=== PATIENT | male | born 1945 | race Caucasian/White ===

== ENCOUNTER 2024-03-27 08:44 | Emergency (ER) | payer OTHER, SELFPAY ==
[2024-03-27 08:50] VITALS: BP 164/79; PULSE 54; TEMP 36.5; O2SAT 98; BMI 36.5
--- NOTE | 2024-03-27 09:00 | CT_ITS ---
The [address] [address] Patient Name: DEBORA REYNOLDS MRN: [id number] date: 1945 Sex: M Assigned Patient Location: ER Current Patient Location: ER Accession/Order Number: [id number] Exam Date: 03/27/2024 09:26 Report Date: 03/27/2024 09:53 At the request of: ELIZABETH SMITH Procedure: CT head/brain wo con CT cervical spine CLINICAL: Atraumatic pain . Headache for 7 days. TECHNIQUE: Contiguous transaxial images obtained from skullbase through cervical spine without administration of intravenous contrast. Coronal and sagittal reformations were obtained. Dose reduction: mA and/or kV are were adjusted by automated exposure control software based upon patients height and weight. FINDINGS: There is no prevertebral soft tissue swelling or acute cervical spine fracture. There is osteopenia of the cervical spine. There is multilevel degenerative disc disease of the cervical spine that is most pronounced from C4-5 through C6-7. There is minimal retrolisthesis of C4 on C5. There are posterior disc-osteophyte complexes from C3-4 through C6-7 that contribute to central canal stenosis. There is multilevel and bilateral uncovertebral joint osteoarthritis, most pronounced from C3-4 through C5-6. There is also multilevel and bilateral facet joint osteoarthritis with left C3-4 facet ankylosis. Uncovertebral and facet joint osteoarthritis contribute to multilevel and bilateral neural foraminal narrowing. Neural foramina narrowing is most pronounced on the right at C4-5 and C5-6. Neural foramina narrowing is most pronounced on the left at C3-4, C4-5, and C5-6. 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 There is mild carotid artery atherosclerosis. CT/CT head/brain wo con IMPRESSION: 1. No acute osseous cervical spine fracture. 2. Multilevel degenerative disc disease of the cervical spine that is most pronounced from C4-5 through C6-7 with minimal retrolisthesis of C4 on C5. 3. Posterior disc-osteophyte complexes from C3-4 through C6-7 contribute to central canal stenosis. 4. Uncovertebral and facet joint osteoarthritis contribute to neural foraminal narrowing that is most processed on the right at C4-5 and C5-6 and on the left at C3-4, C4-5, and C5-6. 5. Mild carotid artery atherosclerosis. CT head without contrast CLINICAL: Atraumatic pain . Headache for 7 days. Neck pain. TECHNIQUE: Contiguous transaxial images were obtained from skull base to vertex without administration of intravenous contrast. Dose reduction: mA and/or kV are were adjusted by automated exposure control software based upon patients height and weight. FINDINGS: There is no focal scalp soft tissue swelling or acute calvarial fracture. The visualized globes and orbits are grossly normal. Visualized there is minimal ethmoid sinus mucosal thickening. There tiny bilateral maxillary sinus air-fluid levels. Bilateral mastoid air cells are clear. The ventricles and sulci are prominent bilaterally. There is periventricular and deep subcortical white matter low-attenuation consistent with small vessel ischemic disease. 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 There is no intraparenchymal hemorrhage, extraaxial fluid collection, mass lesion, or acute large territory ischemia by noncontrast CT. There is intracranial atherosclerosis. IMPRESSION: 1. No acute intracranial hemorrhage or acute large territory ischemia by noncontrast CT 2. Mild chronic small vessel ischemic disease although left caudate head lacunar infarct. 3. Intracranial atherosclerosis. 4. Mild ethmoid sinus mucosal thickening and tiny bilateral maxillary sinus air-fluid levels. Such findings can be seen in the setting of acute sinusitis. Correlate with clinical presentation and history. If the patient has a focal neurologic deficit or there is clinical suspicion for acute cerebrovascular accident, brain MRI would be recommended for further evaluation. Electronically authenticated by: RIVERA BYDR Date: 03/27/2024 09:53
--- NOTE | 2024-03-27 09:01 | CT_ITS ---
The [address] [address] Patient Name: DEBORA REYNOLDS MRN: [id number] date: 1945 Sex: M Assigned Patient Location: ER Current Patient Location: ER Accession/Order Number: [id number] Exam Date: 03/27/2024 09:26 Report Date: 03/27/2024 09:53 At the request of: ELIZABETH SMITH Procedure: CT cervical spine wo con CT cervical spine CLINICAL: Atraumatic pain . Headache for 7 days. TECHNIQUE: Contiguous transaxial images obtained from skullbase through cervical spine without administration of intravenous contrast. Coronal and sagittal reformations were obtained. Dose reduction: mA and/or kV are were adjusted by automated exposure control software based upon patients height and weight. FINDINGS: There is no prevertebral soft tissue swelling or acute cervical spine fracture. There is osteopenia of the cervical spine. There is multilevel degenerative disc disease of the cervical spine that is most pronounced from C4-5 through C6-7. There is minimal retrolisthesis of C4 on C5. There are posterior disc-osteophyte complexes from C3-4 through C6-7 that contribute to central canal stenosis. There is multilevel and bilateral uncovertebral joint osteoarthritis, most pronounced from C3-4 through C5-6. There is also multilevel and bilateral facet joint osteoarthritis with left C3-4 facet ankylosis. Uncovertebral and facet joint osteoarthritis contribute to multilevel and bilateral neural foraminal narrowing. Neural foramina narrowing is most pronounced on the right at C4-5 and C5-6. Neural foramina narrowing is most pronounced on the left at C3-4, C4-5, and C5-6. 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 There is mild carotid artery atherosclerosis. CT/CT cervical spine wo con IMPRESSION: 1. No acute osseous cervical spine fracture. 2. Multilevel degenerative disc disease of the cervical spine that is most pronounced from C4-5 through C6-7 with minimal retrolisthesis of C4 on C5. 3. Posterior disc-osteophyte complexes from C3-4 through C6-7 contribute to central canal stenosis. 4. Uncovertebral and facet joint osteoarthritis contribute to neural foraminal narrowing that is most processed on the right at C4-5 and C5-6 and on the left at C3-4, C4-5, and C5-6. 5. Mild carotid artery atherosclerosis. CT head without contrast CLINICAL: Atraumatic pain . Headache for 7 days. Neck pain. TECHNIQUE: Contiguous transaxial images were obtained from skull base to vertex without administration of intravenous contrast. Dose reduction: mA and/or kV are were adjusted by automated exposure control software based upon patients height and weight. FINDINGS: There is no focal scalp soft tissue swelling or acute calvarial fracture. The visualized globes and orbits are grossly normal. Visualized there is minimal ethmoid sinus mucosal thickening. There tiny bilateral maxillary sinus air-fluid levels. Bilateral mastoid air cells are clear. The ventricles and sulci are prominent bilaterally. There is periventricular and deep subcortical white matter low-attenuation consistent with small vessel ischemic disease. 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 There is no intraparenchymal hemorrhage, extraaxial fluid collection, mass lesion, or acute large territory ischemia by noncontrast CT. There is intracranial atherosclerosis. IMPRESSION: 1. No acute intracranial hemorrhage or acute large territory ischemia by noncontrast CT 2. Mild chronic small vessel ischemic disease although left caudate head lacunar infarct. 3. Intracranial atherosclerosis. 4. Mild ethmoid sinus mucosal thickening and tiny bilateral maxillary sinus air-fluid levels. Such findings can be seen in the setting of acute sinusitis. Correlate with clinical presentation and history. If the patient has a focal neurologic deficit or there is clinical suspicion for acute cerebrovascular accident, brain MRI would be recommended for further evaluation. Electronically authenticated by: RIVERA BYRD Date: 03/27/2024 09:53
--- NOTE | 2024-03-27 09:01 | ED_ITS ---
HPI HPI - General Adult General Chief complaint: Headache Stated complaint: HEADACHE Time Seen by Provider: 03/27/24 08:56 Source: patient and family Mode of arrival: walk-in Limitations: no limitations History of Present Illness HPI narrative: 78-year-old male presents for headache. He has had it for about 7 days and it starts in the back of his neck and goes up the back of his head. He has had no trauma. No weakness or numbness and he has seen his chiropractor 3 times in the past week but it did not help. No fever. Related Data Home Medications ?Medication ?Instructions ?Recorded ?Confirmed fluoxetine 20 mg capsule 20 mg PO DAILY 03/27/24 03/27/24 Previous Rx's ?Medication ?Instructions ?Recorded amoxicillin 875 mg-potassium 1 tab PO BID #20 tabs 03/27/24 clavulanate 125 mg tablet oxycodone-acetaminophen 5 mg-325 1 tab PO Q6H PRN pain 5 days #20 03/27/24 mg tablet (Percocet) tabs Allergies Allergy/AdvReac Type Severity Reaction Status Date / Time ciprofloxacin [From Cipro] Allergy Intermediate Rash Verified 03/27/24 08:50 Opioid HPI Opioid Management Most Recent Opioid Data: Last Pain Scale 4 03/27/24 09:21 Last MAR Pain Assessment 03/27/24 09:21 Review of Systems ROS Narrative A ten point review of systems is negative except as noted above. Exam Narrative Exam Narrative: Nurses note and vital signs reviewed and patient is not hypoxic. General: The patient appears well and in no apparent distress. Patient is resting comfortably on cart. Skin: Warm, dry, no pallor noted. There is no rash noted. Head: Normocephalic, atraumatic, neck supple, no nuchal rigidity Eye: Normal conjunctiva, no drainage, EOMI. PERRL Ears, Nose, Mouth, and Throat: oral mucosa is moist. Nares patent. Cardiovascular: Regular Rate and Rhythm Respiratory: Patient is in no distress, no accessory muscle use, lungs are clear to auscultation, no wheezing, rales or rhonchi Back: non-tender GI: Soft and nontender Musculoskeletal: The patient has no evidence of calf tenderness, no pitting edema, symmetrical pulses noted bilaterally Neurological: A&O, normal speech, upper and lower extremity strength 5 out of 5 and symmetric Psychiatric: Cooperative Constitutional Vital Signs, click to edit/add: Last Vital Signs Temp 97.7 F 03/27/24 08:50 Pulse 54 L 03/27/24 08:50 Resp 16 03/27/24 08:50 BP 164/79 H 03/27/24 08:50 Pulse Ox 98 03/27/24 08:50 O2 Del Method Room Air 03/27/24 08:50 Course Vital Signs Vital signs: Vital Signs Temperature 97.7 F 03/27/24 08:50 Pulse Rate 54 L 03/27/24 08:50 Respiratory Rate 16 03/27/24 08:50 Blood Pressure 164/79 H 03/27/24 08:50 Pulse Oximetry 98 03/27/24 08:50 Oxygen Delivery Method Room Air 03/27/24 08:50 Temperature 97.7 F 03/27/24 08:50 Pulse Rate 54 L 03/27/24 08:50 Respiratory Rate 16 03/27/24 08:50 Blood Pressure 164/79 H 03/27/24 08:50 Pulse Oximetry 98 03/27/24 08:50 Oxygen Delivery Method Room Air 03/27/24 08:50 Medical Decision Making MDM Narrative Medical decision making narrative: Workup indicates he has ethmoid sinusitis. Blood work is negative. CT C-spine for findings consistent with arthritis were discussed with the patient and his . Treatment diagnosis and follow-up were discussed thoroughly. Differential Diagnosis Differential Diagnosis: Sinusitis, intracranial hemorrhage, muscle strain Lab Data Lab results reviewed: Yes I reviewed the patient's lab results Labs: Lab Results 03/27/24 Range/Units 09:07 WBC 8.9 (4.0-11.0) 10^3/uL RBC 4.82 (4.70-6.10) 10^6/uL Hgb 14.9 (14.0-18.0) g/dL Hct 44.1 (42.0-54.0) % MCV 91.5 (80.0-94.0) fL MCH 30.9 (25.9-34.0) pg MCHC 33.8 (29.9-35.2) g/dL RDW 13.2 (11.0-15.0) % Plt Count 192 (150-450) 10^3/uL MPV 10.8 (9.5-13.5) fL Neut % (Auto) 80.5 H (43.0-75.0) % Lymph % (Auto) 11.0 L (20.5-60.0) % [place] % (Auto) 7.1 (1.7-12.0) % Eos % (Auto) 0.6 L (0.9-7.0) % Baso % (Auto) 0.6 (0.2-2.0) % Neut # (Auto) 7.2 H (1.4-6.5) 10^3/uL Lymph # (Auto) 1.0 L (1.2-3.8) 10^3/uL [place] # (Auto) 0.6 (0.3-0.8) 10^3/uL Eos # (Auto) 0.1 (0.0-0.7) 10^3/uL Baso # (Auto) 0.1 (0.0-0.1) 10^3/uL Abs Immat Gran (auto) 0.02 (0.00-0.03) 10^3/uL Imm/Tot Granulo (auto) 0.2 (0.0-0.5) % Sodium 137 (136-145) mmol/L Potassium 4.4 (3.5-5.1) mmol/L Chloride 102 (98-107) mmol/L Carbon Dioxide 28.1 (21.0-32.0) mmol/L Anion Gap 11.3 BUN 12.0 (7.0-18.0) mg/dL Creatinine 0.85 (0.70-1.30) mg/dL Est GFR ( Amer) >60 (>=60) Est GFR (Non-Af Amer) >60 (>=60) BUN/Creatinine Ratio 14.1 Glucose 144 H (74-106) mg/dL Calcium 9.1 (8.5-10.1) mg/dL Imaging Data CT scan - head: Radiologist's impression: ITS Impressions Head CT 03/27/24 09:00 IMPRESSION: 1. No acute osseous cervical spine fracture. 2. Multilevel degenerative disc disease of the cervical spine that is most pronounced from C4-5 through C6-7 with minimal retrolisthesis of C4 on C5. 3. Posterior disc-osteophyte complexes from C3-4 through C6-7 contribute to central canal stenosis. 4. Uncovertebral and facet joint osteoarthritis contribute to neural foraminal narrowing that is most processed on the right at C4-5 and C5-6 and on the left at C3-4, C4-5, and C5-6. 5. Mild carotid artery atherosclerosis. CT head without contrast CLINICAL: Atraumatic pain . Headache for 7 days. Neck pain. TECHNIQUE: Contiguous transaxial images were obtained from skull base to vertex without administration of intravenous contrast. Dose reduction: mA and/or kV are were adjusted by automated exposure control software based upon patients height and weight. FINDINGS: There is no focal scalp soft tissue swelling or acute calvarial fracture. The visualized globes and orbits are grossly normal. Visualized there is minimal ethmoid sinus mucosal thickening. There tiny bilateral maxillary sinus air-fluid levels. Bilateral mastoid air cells are clear. The ventricles and sulci are prominent bilaterally. There is periventricular and deep subcortical white matter low-attenuation consistent with small vessel ischemic disease. 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 There is no intraparenchymal hemorrhage, extraaxial fluid collection, mass lesion, or acute large territory ischemia by noncontrast CT. There is intracranial atherosclerosis. IMPRESSION: 1. No acute intracranial hemorrhage or acute large territory ischemia by noncontrast CT 2. Mild chronic small vessel ischemic disease although left caudate head lacunar infarct. 3. Intracranial atherosclerosis. 4. Mild ethmoid sinus mucosal thickening and tiny bilateral maxillary sinus air-fluid levels. Such findings can be seen in the setting of acute sinusitis. Correlate with clinical presentation and history. If the patient has a focal neurologic deficit or there is clinical suspicion for acute cerebrovascular accident, brain MRI would be recommended for further evaluation. Electronically authenticated by: RIVERA BYRD Date: 03/27/2024 09:[address] 03/27/24 09:01 IMPRESSION: 1. No acute osseous cervical spine fracture. 2. Multilevel degenerative disc disease of the cervical spine that is most pronounced from C4-5 through C6-7 with minimal retrolisthesis of C4 on C5. 3. Posterior disc-osteophyte complexes from C3-4 through C6-7 contribute to central canal stenosis. 4. Uncovertebral and facet joint osteoarthritis contribute to neural foraminal narrowing that is most processed on the right at C4-5 and C5-6 and on the left at C3-4, C4-5, and C5-6. 5. Mild carotid artery atherosclerosis. CT head without contrast CLINICAL: Atraumatic pain . Headache for 7 days. Neck pain. TECHNIQUE: Contiguous transaxial images were obtained from skull base to vertex without administration of intravenous contrast. Dose reduction: mA and/or kV are were adjusted by automated exposure control software based upon patients height and weight. FINDINGS: There is no focal scalp soft tissue swelling or acute calvarial fracture. The visualized globes and orbits are grossly normal. Visualized there is minimal ethmoid sinus mucosal thickening. There tiny bilateral maxillary sinus air-fluid levels. Bilateral mastoid air cells are clear. The ventricles and sulci are prominent bilaterally. There is periventricular and deep subcortical white matter low-attenuation consistent with small vessel ischemic disease. 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 There is no intraparenchymal hemorrhage, extraaxial fluid collection, mass lesion, or acute large territory ischemia by noncontrast CT. There is intracranial atherosclerosis. IMPRESSION: 1. No acute intracranial hemorrhage or acute large territory ischemia by noncontrast CT 2. Mild chronic small vessel ischemic disease although left caudate head lacunar infarct. 3. Intracranial atherosclerosis. 4. Mild ethmoid sinus mucosal thickening and tiny bilateral maxillary sinus air-fluid levels. Such findings can be seen in the setting of acute sinusitis. Correlate with clinical presentation and history. If the patient has a focal neurologic deficit or there is clinical suspicion for acute cerebrovascular accident, brain MRI would be recommended for further evaluation. Electronically authenticated by: RIVERA BYRD Date: 03/27/2024 09:53 Discharge Plan Discharge Stand Alone Forms: Portal Instructions Chief Complaint: Headache Clinical Impression: Acute ethmoidal sinusitis Patient Disposition: Home, Self-Care Time of Disposition Decision: 10:08 Condition: Good Mode of Transportation: Private Vehicle Prescriptions / Home Meds: New oxycodone-acetaminophen [Percocet] 5-325 mg tablet 1 tab PO Q6H PRN (Reason: pain) 5 Days Qty: 20 0RF amoxicillin-pot clavulanate 875-125 mg tablet 1 tab PO BID Qty: 20 0RF No Action fluoxetine 20 mg capsule 20 mg PO DAILY Print Language: Malay Instructions: Sinusitis (ED) Referrals: FRAN BENJAMIN [Primary Care Provider] - 1 week
[2024-03-27] MEDS: MORPHINE SULFATE 4 MG/ML VIAL IV (09:21)
[2024-03-27 09:32] LABS: Basophils Absolute Auto 0.1 10^3/uL (0.0-0.1); Basophils Percent Auto 0.6 % (0.2-2.0); Eosinophils Absolute Auto 0.1 10^3/uL (0.0-0.7); Eosinophils Percent Auto 0.6 % (0.9-7.0); Hematocrit 44.1 % (42.0-54.0); Hemoglobin 14.9 g/dL (14.0-18.0); Immature Granulocytes Abs Auto 0.02 10^3/uL (0.00-0.03); Immature Granulocytes Pct Auto 0.2 % (0.0-0.5); Mean Corpuscular HGB Conc 33.8 g/dL (29.9-35.2); Mean Corpuscular Hemoglobin 30.9 pg (25.9-34.0); Mean Corpuscular Volume 91.5 fL (80.0-94.0); Mean Platelet Volume 10.8 fL (9.5-13.5); Monocytes Absolute Auto 0.6 10^3/uL (0.3-0.8); Monocytes Percent Auto 7.1 % (1.7-12.0); Neutrophils Absolute Auto 7.2 10^3/uL (1.4-6.5); Neutrophils Percent Auto 80.5 % (43.0-75.0); Platelet Count 192 10^3/uL (150-450); Red Blood Count 4.82 10^6/uL (4.70-6.10); Red Cell Distribution Width 13.2 % (11.0-15.0); White Blood Count 8.9 10^3/uL (4.0-11.0)
[2024-03-27 09:47] LABS: Anion Gap 11.3; BUN Creatinine Ratio 14.1; Calcium 9.1 mg/dL (8.5-10.1); Carbon Dioxide 28.1 mmol/L (21.0-32.0); Chloride 102 mmol/L (98-107); Estimated GFR (African America >60 (>=60); Estimated GFR (Non-African Ame >60 (>=60); Glucose 144 mg/dL (74-106); Potassium 4.4 mmol/L (3.5-5.1); Sodium 137 mmol/L (136-145)
[2024-03-27 10:17] VITALS: BP 169/75; PULSE 48; O2SAT 98
== END 2024-03-27 10:19 | disposition home or self-care (01) ==
PROVIDERS: Emergency Provider Emergency Medicine; PCP Internal Medicine
DX: J01.20 Acute ethmoidal sinusitis, unspecified (principal)
CPT/HCPCS: 36415; 70450; 72125; 80048; 85025; 96374; 99284

== ENCOUNTER 2024-06-23 13:47 | Outpatient (RCR) | payer MEDICARE, SELFPAY | END 2024-07-17 12:09 | disposition home or self-care (01) | LOC: PT 13:47 | PROVIDERS: PCP Internal Medicine; Visit Provider Student in an Organized Health Care Education/Training Program | DX: M47.812 Spondylosis without myelopathy or radiculopathy, cervical region (principal) | CPT/HCPCS: 97012; 97110; 97140; 97162 ==

== ENCOUNTER 2025-05-20 13:45 | Outpatient (RCR) | payer MEDICARE, OTHER, SELFPAY | END 2025-07-08 07:36 | disposition home or self-care (01) | LOC: PT 13:45 | PROVIDERS: PCP Internal Medicine; Visit Provider Internal Medicine | DX: S72.25XD Nondisplaced subtrochanteric fracture of left femur, subsequent encounter for closed fracture with routine healing (principal) | CPT/HCPCS: 97110; 97112; 97113; 97161; 97530 ==

== ENCOUNTER 2025-06-14 08:42 | Outpatient (OUT) | payer OTHER, SELFPAY ==
--- OUTSIDE RECORDS SUMMARY | 2025-06-01 10:30 | XMS_ITS | Encounter Summary ---
Author Organization [facility] Address [address] [place] [address] Care Team Providers Care Clerical Proofreader Name Role Phone Ewa Camarena DO Unavailable [phone] Conrado Lozano MD Unavailable [phone] Ashley Varner MD Unavailable [phone] Conrado Lozano MD Unavailable [phone] Ewa Camarena DO Primary Care Provider Ashley Moran MANAGER GROCERY Unavailable [phone] Reason for Visit * Reason Comments Hospital Follow-up Encounter Details Date Type Department Care Team (Late Contact Info) Description 06/01/2025 10:30 AM EDT [facility] [address] [address] [place] [phone] Ewa Camarena DO [address] [facility] [address] [place] [address] Social History Tobacco Use Types Packs/Day Years Used Date Smoking Tobacco: Former Cigarettes Q uit: 11/04/1993 Smokeless Tobacco: Never Tobacco Cessation:Counseling Given: No Alcohol Use Standard Drinks/Week Comments Not Currently 0 (1 standard drink = 0.6 oz pure alcohol) pt does not drink; caffeine intake: 1 can of pepsi once a week AUDIT-C Answer Date Recorded Frequency of Alcohol Consumption Not on file 08/21/2023 Q2: How many drinks containi ng alcohol do you have on a typical day when you are drinking? Patient does not drink Frequency of Binge Drinking Not on file 08/04 PHQ-2 Answer Date Recorded Patient Health Questionnaire-2 Score 0 08/27/2024 Sex and Gender Information Value Date Recorded Sex Assigned at Male 05/11/2023 5:37 PM EDT Legal Sex Male 7:16 PM EDT Gender Identity Male 05/11/2023 5:37 PM EDT Sexual Orientation Straight 05/11/2023 5: 37 PM EDT documented as of this encounter Last Filed Vital Signs Vital Sign Reading Time Taken Comments Blood Pressure 126/68 06/01/2025 10:45 AM EDT Pulse 89 06/01/2025 10:45 AM EDT Temperature - - Respiratory Rate - - Oxygen Saturation 98% 06/01/2025 10:45 AM EDT Inhaled Oxygen Concentration - - Weight 103 kg (226 lb 12.8 oz) 06/01/2025 10:45 AM EDT Height - - Body Mass Index 33.49 01/02/2023 12:00 PM EST documented in this encounter Plan of Treatment Upcoming Encounters Date Type Department Care Team (Late st Contact Info) Description 11/16/2025 10:00 AM EST Office Visit [facility] [address] [place] [address] Ewa Camarena DO [address] [place] [address] 01/05/2026 9:00 AM EST Office [facility] [address] [place] [phone] Ashley Varner MD [address] [place] [address] documented as of this encounter Visit Diagnoses Not on filedocumented in this encounter Care Teams Clerical Proofreader Relationship Specialty Start Date End Date Ewa Camarena DO [address] [place] [address] PCP - ACO Reach 03/28/23 Ewa Camarena DO [address] [place] [address] PCP - General Internal Medicine 08/22/23 Conrado Lozano MD [address] [place] [address] Referring Physician Ophthalmology 08/21/23 Ashley Varner MD [address] [facility] [address] [place] [address] Consulting Physician Dermatology 08/21/23 Conrado Lozano MD [address] [place] [address] Consulting Physician Ophthalmology 08/21/23 Ashley Moran NP [address] [facility] [address] [place] [address] Nurse Practitioner Family Medicine 08/27/24 Nathaniel Landa Consulting Physician Ophthalmology 08/20/23 Ta [facility] 08/05/23 documented as of this encounter
--- OUTSIDE RECORDS SUMMARY | 2025-06-09 08:13 | XMS_ITS | Encounter Summary ---
Author Organization [facility] Address [address] [place] [address] Care Team Providers Care Tire Cord Weaver Name Role Phone Ewa Camarena MD Primary Care Provider [phone] Encounter Details Date Type Department Care Team (Latest Contact Info) Description 06/09/2025 8:13 AM EDT - 06/09/2025 11:59 PM EDT Hospital Encounter [facility] [address] [place] [address] [place] [address] Closed fracture of femur, intertrochanteric, left, initial encounter ([facility]) Discharge Disposition: Home or Self Care () Social History Tobacco Use Types Packs/Day Years Used Date Smoking Tobacco: Never Smokeless Tobacco: Never Alcohol Use Standard Drinks/Week Comments Not Currently 0 (1 standard drink = 0.6 oz pur e alcohol) [facility] Utilities Answer Date Recorded In the past 12 months has [facility] [employer], gas, oil, or water [employer] threatened to shut off services in your home? No 06/09/2025 Humiliation, Afraid, Rape, and Kick questionnair e Answer Date Recorded Within the last year, have y ou been afraid of your partner or ex-partner? No 04/28/2025 Emotionally Abused Not on file 04/28/2025 Physically Abused Not on file 04/28/2025 Sexually Abused Not on file 04/28/2025 Overall Financial Resource Strain (CARDIA) Answe r Date Recorded How hard is it for you to pa y for the very basics like food, housing, medical care, and heating? Not very hard 04/28/2025 PHQ-2 Answer Date Recorded Patient Health Questionnaire-2 Score 0 06/09/2025 Transportation Answer Date Recorded In the past 12 months, has l ack of transportation kept you from medical appointments or from getting medications? No 04/28/2025 Lack of Transportation (Non-Medical) Not on file 04/28/2025 Housing Stability Vital Sign Answer Man e Recorded In the last 12 months, was t here a time when you were not able to pay the mortgage or rent on time? No 04/28/2025 Number of Times Moved in the Last Year Not on fi le 04/28/2025 At any time in the past 12 m [facility], were you homeless or living in a jail (including now)? No 04/28/2025 Hunger Vital Sign Answer Date Recorded Within the past 12 months, y ou worried that your food would run out before you got the money to buy more. Never true 04/28/20 25 Ran Out of Food in the Last Year Not on file 04/28/2025 Sex and Gender Information Value Date Recorded Sex Assigned at Male 04/28/2025 8:58 AM EDT Legal Sex Male 8:05 PM EDT Gender Identity Male 04/28/2025 8:58 AM EDT Sexual Orientation Heterosexual or Straight 04/05 8:58 AM EDT documented as of this encounter Functional Status documented as of this encounter Medications at Time of Discharge ammonium lactate (Lac-Hydrin) 12 % lotion Apply 1 Application topically if needed for dry skin or irritation (for feet and lower legs as needed). 5 cholecalciferol (Vitamin D-3) 50 MCG (2000 UT) tabletIndications:Clos ed nondisplaced intertrochanteric fracture of left femur, initial encounter ([facility]) Take 1 tablet (50 mcg) by mouth in the morning for 96 doses. 5 07/23/20 25 ergocalciferol (Vitamin D-2) 1.25 MG (00598 Units) capsuleIndications:Janeen sed nondisplaced intertrochanteric fracture of left femur, initial encounter ([facility]) Take 1 capsule (50,000 Units) by mouth 1 (one) time per week for 14 doses. 5 07/24/20 25 FLUoxetine (PROzac) 20 mg capsuleIndications:pos t traumatic stress disorder Take 40 mg by mouth in the morning. documented as of this encounter Plan of Treatment Upcoming Encounters Date Type Department Care Team (Late st Contact Info) Description 08/11/2025 8:15 AM EDT [facility] [address] [place] [address] [place] [phone] Ady Anton MD [address] [facility] [place] [phone] documented as of this encounter Procedures Procedure Name Priority Date/Time Associated Diagnosis Comments XR HIP 2 OR 3 VW LEFT Routine 06/09/2025 8:25 AM EDT Closed fracture of femur, intertrochanteric, left, initial encounter ([facility]) documented in this encounter Results * XR hip left 2 or 3 views (06/09/2025 8:25 AM EDT) Anatomical Region Laterality Modality Lower Extremities, Hip Left Computed Radiography 06/09/2025 11:2 2 AM EDT Impressions 06/09/2025 11:25 AM EDT 1. Stable alignment of intertrochanteric left hip fracture status post ORIF, with interval callus formation at the fracture site. Intact hardware without evidence for loosening. 2. Degenerative changes of the hips, SI joints, lumbar spine. Electronically signed: Chauncey Briones. Narrative 06/09/2025 11:25 AM EDT LEFT HIP 3 VIEWS WITH PELVIS COMPARISON: 04/28/2025 HISTORY: Closed intertrochanteric fracture of left hip, follow-up. Left hip pain. AP view the pelvis and hips, AP view of the left hip, and frog lateral radiograph of the left hip obtained. Procedure Note Chauncey Briones MD - 06/09/2025 LEFT HIP 3 VIEWS WITH PELVIS COMPARISON: 04/28/2025 HISTORY: Closed intertrochanteric fracture of left hip, follow-up. Lefthip pain. AP view the pelvis and hips, AP view of the left hip, and frog lateral radiograph of the left hip obtained. IMPRESSION: 1. Stable alignment of intertrochanteric left hip fracture status postORIF, with interval callus formation at the fracture site. Intact hardwarewithout evidence for loosening. 2. Degenerative changes of the hips, SI joints, lumbar spine. Electronically signed: Chauncey Briones. Ady Anton MD IMG XR PROCEDURES Final R esult documented in this encounter Visit Diagnoses Diagnosis Closed fracture of femur, intertrochanteric, left, initial encounter ([facility]) documented in this encounter Care Teams Tire Cord Weaver Relationship Specialty Start Date End Date Ewa Camarena MD [address] [place] [phone] PCP - General Internal Medicine 04/14/25 documented as of this encounter
--- OUTSIDE RECORDS SUMMARY | 2025-06-09 09:15 | XMS_ITS | Encounter Summary ---
Author Organization [facility] Address [address] [place] [address] Care Team Providers Care Auto Body Service Mechanic Name Role Phone Ewa Camarena MD Primary Care Provider [phone] Reason for Visit * Reason Comments Pain Pt. States he starte d having a little pain this morning in the thigh area, states it feels like the pain is in the muscle. Over all doing well. Follow-up Pt. States he starte d having a little pain this morning in the thigh area, states it feels like the pain is in the muscle. Over all doing well. Encounter Details Date Type Department Care Team (Late st Contact Info) Description 06/09/2025 9:15 AM EDT Follow-Up [facility] [address] [place] [address] [place] [phone] Ady Anton MD [address] [place] [address] Closed fracture of femur, intertrochanteric, left, initial encounter ([facility]) (Primary Dx) Social History Tobacco Use Types Packs/Day Years Used Date Smoking Tobacco: Never Smokeless Tobacco: Never Alcohol Use Standard Drinks/Week Comments Not Currently 0 (1 standard drink = 0.6 oz pur e alcohol) [facility] Utilities Answer Date Recorded In the past 12 months has e electric, gas, oil, or water company threatened to shut off services in your [...] any time in the past 12 m [facility], were you homeless or living in a longterm (including now)? No 04/28/2025 Hunger Vital Sign Answer Date Recorded Within the past 12 months, y ou worried that your food would run out before you got the money to buy more. Never true 04/28/20 Ran Out of Food in the Last Year Not on file 04/28/2025 Sex and Gender Information Value Date Recorded Sex Assigned at Male 04/28/2025 8:58 AM EDT Legal Sex Male 8:05 PM EDT Gender Identity Male 04/28/2025 8:58 AM EDT Sexual Orientation Heterosexual or Straight 04/05 8:58 AM EDT documented as of this encounter Last Filed Vital Signs Vital Sign Reading Time Taken Comments Blood Pressure - - Pulse - - Temperature - - Respiratory Rate - - Oxygen Saturation - - Inhaled Oxygen Concentration - - Weight 112 kg (248 lb) 06/09/2025 8:00 AM EDT Height 175.3 cm (5' 9 ) 06/09/2025 8:00 AM EDT Body Mass Index 36.62 06/09/2025 8:00 AM EDT documented in this encounter Functional Status documented as of this encounter Progress Notes * Ady Anton MD - 06/09/2025 9:15 AM EDT Images from the original note were not included. Orthopedic Surgery 04/15/2025 Insertion, Intramedullary Torres, Femur - Left Gen Rees comes in for a post-operative visit after having a left intertrochanteric femurfractured s/p closed reduction and cephalomedullary nailing done on 04/15/2025. Today he is doing well and has no unexpected complaints. He is currently at a [facility] facility ([facility] [place]) which provides physical therapy twice daily for him. He is still using a walker which he was not using prior to the injury. Physical Exam: The incision site is healing well. There is no erythema, drainage or signs of infection. Tenderness is mild and localized to the surgical site. Sensation is present to light touch. Range of motion is appropriate for this time. Leg lengths are equal. Internal and external rotationof the legs bilaterally are equal. Left knee active extension is full and hip active flexion is 80 degrees. Imaging: X-rays of left femur today (06/09/25) show short intramedullary torres and helical hip blade intact. No loosening of hardware or new fracture is visible. Anatomic alignment of proximal femur fracture. Prior medial compartment knee arthroplasty is visible. Assessment: Gen Rees is a 80 y.o. year old male with Closed fracture of femur, intertrochanteric, left, initial encounter ([facility]) 8 weeks s/p closed reduction and cephalomedullary nailing. Plan: Patient is doing well post-operatively. Continue outpatient physical therapy. Follow-up in 2 months with new x-rays of left hip. Follow up in 2 months with repeat left hip xrays. Coco Arias, MS4 Orthopedic Surgery 06/09/25 8:40 AM By using the attestations below, the signing clinician agrees that I have read and verify that thedocumentation has been personally reviewed by me and ensure that the documentation accurately reflects the encounter. GC: I personally saw this patient on the day of the encounter, performed the gordon portion(s) of the service and participated in the management and confirm the resident's documentation. Please note there may be an additional personal documentation from me. documented in this encounter Plan of Treatment Upcoming Encounters Date Type Department Care Team (Late st Contact Info) Description 08/11/2025 8:15 AM EDT Follow-Up [facility] [address] [place] [address] [place] [address] Ady Anton MD [address] [place] [address] documented as of this encounter Results * XR hip left [...] of femur, intertrochanteric, left, initial encounter ([facility])- Primary Closed fracture of femur, intertrochanteric, left, initial encounter ([facility]) documented in this encounter Care Teams Auto Body Service Mechanic Relationship Specialty Start Date End Date Ifrah-Ewa Shah MD [address] [place] [address] PCP - General Internal Medicine 04/14/25 documented as of this encounter
--- OUTSIDE RECORDS SUMMARY | 2025-06-14 08:44 | XMS_ITS | Encounter Summary ---
Author Organization [facility] Address [address] [facility] [place] [address] Care Team Providers Care Bookmobile Librarian Name Role Phone Ewa Camarena DO Unavailable [phone] Conrado Lozano MD Unavailable Ashley Varner MD Unavailable [phone] Conrado Lozano MD Unavailable [phone] Ewa Camarena DO Primary Care Provider Latosha Kennedy EXTRACTOR LOADER AND UNLOADER Unavailable [phone] Ashley Moran BUILDING DRAFTING OFFICER Unavailable [phone] Encounter Details Date Type Department Care Team (Late st Contact Info) Description 11/12/2023 [facility] [address] [facility] [address] [place] [phone] A, Unknown Practice [address] [place] [id number] Social History Tobacco Use Types Packs/Day Years Used Date Smoking Tobacco: Former Cigarettes Q uit: 11/04/1993 Smokeless Tobacco: Never Alcohol Use Standard Drinks/Week [...] Date Recorded Patient Health Questionnaire-2 Score 0 08/22/2023 Sex and Gender Information Value Date Recorded Sex Assigned at Male 05/11/2023 5:37 PM EDT Legal Sex Male 7:16 PM EDT Gender Identity Male 05/11/2023 5:37 PM EDT Sexual Orientation Straight 05/11/2023 5: 37 PM EDT documented as of this encounter Plan of Treatment Upcoming Encounters Date Type Department Care Team (Late st Contact Info) Description 11/16/2025 10:00 AM EST Office Visit [facility] [address] [place] [phone] Ewa Camarena DO [address] [place] [address] 01/05/2026 9:00 AM EST Office Visit [facility] [address] [place] [phone] Ashley Varner MD [address] [place] [address] documented as of this encounter Procedures Procedure Name Priority Date/Time Associated Diagnosis Comments HOME SLEEP TEST Routine 07/05/2023 3:24 PM EDT documented in this encounter Results * Home sleep test (07/05/2023 3:24 PM EDT) us Unknown Practice [facility] ORDERABLES Final Result documented in this encounter Visit Diagnoses Not on filedocumented in this encounter Care Teams Bookmobile Librarian Relationship Specialty Start Date End Date Ewa Camarena DO [address] [place] [address] PCP - ACO Reach 03/28/23 Ewa Camarena DO [address] [place] [address] PCP - General Internal Medicine 08/22/23 Conrado Lozano MD [address] [place] [address] Referring Physician Ophthalmology 08/21/23 Ashley Varner MD [address] [place] [address] Consulting Physician Dermatology 08/21/23 Conrado Lozano MD [address] [place] [address] Consulting Physician Ophthalmology 08/21/23 Latosha Kennedy, EXTRACTOR LOADER AND UNLOADER [address] [facility] [address] [place] [address] Newspaper Distributor Supervisor Family Medicine 06/01/24 06/03/24 Ashley Moran NP [address] [facility] [address] [place] [address] Nurse Practitioner Family Medicine 08/27/24 Nathaniel Landa Consulting Physician Ophthalmology 08/20/23 Ta Kennedy Chiropractic Medicine 08/05/23 documented as of this encounter
--- OUTSIDE RECORDS SUMMARY | 2025-06-14 08:44 | XMS_ITS | Encounter Summary ---
Author Organization [facility] Address [address] [facility] [place] [address] Care Team Providers Care Certified Massage Therapist Name Role Phone Ewa Camarena DO Unavailable [phone] Conrado Lozano MD Unavailable [phone] Ashley Varner MD Unavailable [phone] Conrado Lozano MD Unavailable [phone] Ewa Camarena DO Primary Care Provider Ashley Moran ORNAMENTAL IRON ERECTOR Unavailable [phone] Encounter Details Date Type Department Care Team (Late st Contact Info) Description 04/15/2025 Orders Only [facility] [address] [facility] [address] [place] [phone] Unallocated, Noms Provider, [address] [place], [place] [phone] Social History Tobacco Use Types Packs/Day Years [...] Description 11/16/2025 10:00 AM EST Office Visit [facility] [place] [facility] [address] [place] [address] Ewa Camarena DO [address] [place] [address] 01/05/2026 9:00 AM EST Office Visit [facility] [place] [facility] [address] [place] [address] Ashley Varner MD [address] [place] [address] documented as of this encounter Procedures Procedure Name Priority Date/Time Associated Diagnosis Comments ECG 12-LEAD Routine 04/14/2025 2:05 PM EDT XR CHEST 1 VIEW FRONTAL Routine 04/14/2025 8:41 AM EDT documented in this encounter Results * ECG 12 lead (04/14/2025 2:05 PM EDT) us N[facility] Provider Unallocated ECG ORDERABLES Fin al Result * XR CHEST 1 VIEW FRONTAL (04/14/2025 8:41 AM EDT) Anatomical Region Laterality Modality Radiographic Sue ging us Noms Provider Unallocated IMG XR PROCEDURES F inal Result documented in this encounter Visit Diagnoses Not on filedocumented in this encounter Care Teams Certified Massage Therapist Relationship Specialty Start Date End Date Ewa Camarena DO [address] [place] [address] PCP - ACO Reach 03/28/23 Ewa Camarena DO [address] [facility] [address] [place] [address] PCP - General Internal Medicine 08/22/23 Conrado Lozano MD [address] [place] [address] Referring Physician Ophthalmology 08/21/23 Ashley Varner MD [address] [facility] [address] [place] [address] Consulting Physician Dermatology 08/21/23 [place] [address] [place] [address] Consulting Physician Ophthalmology 08/21/23 Ashley Moran NP [address] [facility] [address] [place] [address] Nurse Practitioner Family Medicine 08/27/24 Nathaniel Landa Consulting Physician Ophthalmology 08/20/23 Ta Kennedy Chiropractic Medicine 08/05/23 documented as of this encounter
--- OUTSIDE RECORDS SUMMARY | 2025-06-14 08:44 | XMS_ITS | Clinical Summary ---
Author Organization [facility] Address [address] [place] [address] Care Team Providers Care Electric Organ Assembler Name Role Phone Ewa Camarena DO Unavailable [phone] Conrado Lozano MD Unavailable [phone] Ashley Varner MD Unavailable [phone] Conrado Lozano MD Unavailable [phone] Ewa Camarena DO Primary Care Provider Ashley Moran MARKETING PROFESSIONAL Unavailable [phone] Allergies Active Allergy Reactions Criticality Noted Date Comments Ciprofloxacin Rash Low 05/13/2023 Lactose 05/13/2023 Other Reaction(s): intolerant Medications FLUoxetine (PROzac) 20 MG capsuleIndicatio ns:Posttraumatic Stress Disorder Take 40 mg by mouth Daily Active ammonium lactate (Lac-Hydrin) 12 % lotionIndication s:Venous stasis dermatitis of right lower extremity Apply topically if needed for dry skin 140 g 3 5 02/04/20 26 Active acetaminophen (Tylenol) 500 MG tablet Take 1,000 mg by mouth in the morning and 1,000 mg before bedtime. Active aspirin 325 MG tablet Take 325 mg by mouth Daily Active Cholecalciferol 50 MCG (1999) tablet dispersible Take 50 mcg by mouth Daily Active Active Problems Problem Noted Date Diagnosed Date Arthritis of neck 04/01/2024 Overview (08/27/2024): CT done 03/2024 for BLANCO. Noted to have degenerative changes at the spine with disc space narrowing, endplate spurring and facet disease. There is mild thecal sac effacement at C3-4 and C6-7 and moderate at C4-5 and C5-6. There is also prominent multilevel foraminal encroachment from C3-4 through C5-6 bilaterally -- 08/2024: He has had 2 injections with Pain Management/Dr Sesay and reports significant improvement CPAP (continuous positive airway pressure) preethi ramsay 10/04/2023 Overview (11/12/2023): Pt set up on CPAP of [id number] post WatchPAT device PTSD (post-traumatic stress disorder) 08/22/2023 Overview (08/27/2024): dx 2022- seeing a counselor and participating in a support group through the [facility] 08/2024: He reports he feels like his dose of fluoxetine needs increase from 20 mg to 40 mg ([facility]) EPIFANIO (obstructive sleep apnea) 08/22/2023 Overview (11/12/2023): 08/22/2023: He had a sleep study done ~07/2023 ([facility] the [facility]) and findings c/w moderate EPIFANIO> will likely be getting a CPAP. He reports that he has appt an 09/05/2023 to discuss recommendations 11/2023 Pt prescribed CPAP of 8-12 cmH2O post WatchPAT device and Dr. Marrero ([facility]). He reports he is tolerating this well and is wearing nightly and during the day if he naps. He reports he is getting up less frequently at night and much more rested during the day Bilateral tinnitus 08/21/2023 Sensorineural hearing loss (SNHL), bilateral Assessment & Plan (08/22/2023 9:41 AM EDT): He can get his hearing aids through the [place] clinic Venous stasis dermatitis of right lower extremit y 08/21/2023 IFG (impaired fasting glucose) 11/04/2018 Overview (08/27/2024): Dx 11/2018. He made diet changes and lost ~35# and glucose control improved 08/2023 NHF=776 and A1c-5.5% 08/2024 IVZ=344 and A1c=6.0% Assessment & Plan (08/27/2024 9:41 AM EDT): I have reinforced the importance of dietary modification, routine exercise and weight control for fpc glucose management and reduction in risk for development of DM or DM-related complications (like vision loss, kidney failure, neuropathy, and increased risk of heart attack and stroke). Assessment & Plan (08/22/2023 9:41 AM EDT): His glucose control remains good overall. Hx of deep venous thrombosis 06/04/2006 Overview (08/21/2023): 06/2006: Occurred in post-op setting. 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 and then treated with Xarelto x 3 months (initially was on coumadin, but he was sensitive to this and had supratherapeutic INR even on low dose) Michael filter in place 11/04/2005 Overview (08/21/2023): placed 06/2006: right leg Encounters Date Type Department Care Team Description 06/01/2025 10:30 AM EDT Office Visit [facility] [address] [place] [phone] Ewa Camarena DO 06/01/2025 Travel 05/28/2025 Patient Outreach [facility] [address] [address] Otilia Rg LPN 05/21/2025 Patient Outreach [facility] [address] [place] [address] Otilia Rg, REGULATORY AFFAIRS INTERN 05/10/2025 Patient Outreach [facility] [address] [place] [address] Otilia Rg, REGULATORY AFFAIRS INTERN 05/06/2025 Patient Outreach [facility] [address] [place] [place] [address] Otilia Rg, REGULATORY AFFAIRS INTERN 04/29/2025 Patient Outreach [facility] [address] [place] [address] Otilia Rg, REGULATORY AFFAIRS INTERN 04/20/2025 Patient Outreach [facility] [address] [place] [address] Norma Kang MA 04/15/2025 Orders Only [facility] [address] [place] [address] Unallocated, [facility] ProviderMD from Last 3 Months Immunizations Immunization Administration Dates Next Due Influenza, seasonal, injectable 07/15/2023 Pneumococcal Conjugate PCV 13 05/03/2016 Pneumococcal Polysaccharide PPSV23 06/11/2013, RSV, recombinant, protein morton bunit RSVpreF, adjuvant reconstitu, 120mcg/0.5mL, PF (Arexvy) 07/15/2023 SARS-COV-2 (COVID-19) vaccin e, mRNA, spike protein, LNP, PF, karen-sucrose, 30 mcg/0.3 mL 07/26/2023 Tdap 04/26/2023 Zoster, Recombinant 08/18/2019,08/04/2019,2018 Family History Medical History Relation Name Comments Appendicitis Brother 1 CAD with 4VCABG Brother 1 Colon cancer Brother 1 Kidney cancer Brother 1 Alcohol abuse Brother 2 Drug abuse Brother 2 smoking related health issues Brother 2 CAD with [place] Father Stroke Father Chronic kidney disease Mother Diabetes Mother Cancer Sibling Heart disease Sibling Osteoporosis Sister 1 Osteoporosis Sister 2 Melanoma Neg Hx Relation Name Status Comments Brother 1 Brother 2 Alive Father (Age 71) Mother (Age 91) Sibling Sister 1 Sister 2 Alive Social History Tobacco Use Types Packs/Day Years [...] Orientation Straight 05/11/2023 5: 37 PM EDT Last Filed Vital Signs Vital Sign Reading Time Taken Comments Blood Pressure 126/68 06/01/2025 10:45 AM EDT Pulse 89 06/01/2025 10:45 AM EDT Temperature 36.1 C (97 F) 02/09/2025 9:58 AM EDT Respiratory Rate - - Oxygen Saturation 98% 06/01/2025 10:45 AM EDT Inhaled Oxygen Concentration - - Weight 103 kg (226 lb 12.8 oz) 06/01/2025 10:45 AM EDT Height 175.3 cm (5' 9 ) 01/02/2023 12:00 PM EST Body Mass Index 33.49 01/02/2023 12:00 PM EST Plan of Treatment Upcoming Encounters Date Type Department Care Team (Late st Contact Info) Description 11/16/2025 10:00 AM EST Office Visit [facility] [address] [place] [address] Ewa Camarena, DO [address] [place] [address] 01/05/2026 9:00 AM EST Office Visit [facility] [place] [facility] [address] [place] [address] Ashley Varner MD [address] [place] [address] Health Maintenance Due Date Last Done Comments Influenza Vaccine (#1) 2025 , 07/15/2023, 08/31/2022, Additional history exists Medicare Annual Wellness (AWV) 08/27/2025 08/27/2024 , 08/17/2022 Pneumococcal Vaccine: 65+ Years Completed 05/03/2016, 06/11/2013, 02/16/2006 Procedures Procedure Name Priority Date/Time Associated Diagnosis Comments ECG 12-LEAD Routine 04/14/2025 2:05 PM EDT XR CHEST 1 VIEW FRONTAL Routine 04/14/2025 8:41 AM EDT from Last 3 Months Results * ECG 12 lead (04/14/2025 2:05 PM EDT) us [facility] Provider Unallocated MD ECG ORDERABLES Fin al Result * XR CHEST 1 VIEW FRONTAL (04/14/2025 8:41 AM EDT) Anatomical Region Laterality Modality Radiographic Sue ging us [facility] Provider Unallocated MD IMG XR PROCEDURES F inal Result from Last 3 Months Insurance MEDICARE LEEANN Advance Directives Documents on File Type Date Recorded Patient Delinquent Account Clerk Expl anation Advance Directives and Livin g Will 09/15/2019 [email or web address] * Full Code (Latest Code Status on File) Date Activated Date Inactivated Comments 08/27/2024 9:14 AM * Full Code Date Activated Date Inactivated Comments 08/21/2023 11:18 PM 08/27/2024 9:14 AM Care Teams Electric Organ Assembler Relationship Specialty Start Date End Date Ewa Camarena DO [address] [place] [address] PCP - ACO Reach 03/28/23 Ewa Camarena DO [address] [place] [address] PCP - General Internal Medicine 08/22/23 [place] [address] [place] [address] Referring Physician Ophthalmology 08/21/23 Ashley Varner MD [address] [place] [address] Consulting Physician Dermatology 08/21/23 [place] [address] [place] [address] Consulting Physician Ophthalmology 08/21/23 Ashley Moran NP [address] [id number] Nurse Practitioner Family Medicine 08/27/24 Nathaniel Landa Consulting Physician Ophthalmology 08/20/23 Ta Kennedy Chiropractic Medicine 08/05/23
--- OUTSIDE RECORDS SUMMARY | 2025-06-14 08:44 | XMS_ITS | Encounter Summary ---
Author Organization [facility] Address [address] [place] [address] Care Team Providers Care Conference Center Coordinator Name Role Phone Ewa Camarena DO Unavailable [phone] Conrado Lozano MD Unavailable [phone] Ashley Varner MD Unavailable [phone] Conrado Lozano MD Unavailable [phone] Ewa Camarena DO Primary Care Provider Latosha Kennedy CAN LINE OPERATOR Unavailable [phone] Ashley Moran CLOTH TEARER Unavailable [phone] Encounter Details Date Type Department Care Team (Late st Contact Info) Description 08/22/2023 Abstract [facility] [address] [facility] [address] [place] [address] Ewa Camarena, DO [address] [facility] [address] [place] [address] Social History Tobacco Use Types Packs/Day Years [...] Orientation Straight 05/11/2023 5: 37 PM EDT COVID-19 Exposure Response Date Recorded In the last 10 days, have yo u been in contact with someone who was confirmed or suspected to have Coronavirus/COVID-19? No / Unsure 08/18/2023 6:37 PM EDT documented as of this encounter Functional Status * Over the past 2 weeks, how often have you been bothered by any of the following problems? Question Answer Date of Assessment Author Little interest or pleasure in doing things Not at all 08/22/2023 9:00 AM EDT Liz Briscoe LP N Feeling down, depressed, or hopeless Not at all 08/22/2023 9:00 AM EDT Liz Briscoe LP N Patient Health Questionnaire -2 Score 0 08/22/2023 9:00 AM EDT Liz Briscoe LP N documented as of this encounter Plan of Treatment Upcoming Encounters Date Type Department Care Team (Late st Contact Info) Description 11/16/2025 10:00 AM EST Office Visit [facility] [address] [place] [address] Ewa Camarena DO [address] [place] [address] 01/05/2026 9:00 AM EST Office Visit [facility] [address] [place] [address] Ashley Varner MD [address] [place] [address] documented as of this encounter Visit Diagnoses Not on filedocumented in this encounter Care Teams Conference Center Coordinator Relationship Specialty Start Date End Date Ewa Camarena DO [address] [place] [address] PCP - ACO Reach 03/28/23 Ewa Camarena DO [address] [place] [address] PCP - General Internal Medicine 08/22/23 Conrado Lozano MD [address] [place] [address] Referring Physician Ophthalmology 08/21/23 Ashley Varner MD [address] [place] [address] Consulting Physician Dermatology 08/21/23 [place] [address] [place] [address] Consulting Physician Ophthalmology 08/21/23 Latosha Kennedy, CHELLY [address] [place] [address] Information Architect Family Medicine 06/01/24 06/03/24 Ashley Moran NP [address] [place] [address] Nurse Practitioner Family Medicine 08/27/24 Nathaniel Landa Consulting Physician Ophthalmology 08/20/23 [facility] 08/05/23 documented as of this encounter
--- OUTSIDE RECORDS SUMMARY | 2025-06-14 08:44 | XMS_ITS | Encounter Summary ---
Author Organization [facility] Address [address] [place] [address] Care Team Providers Care Strategic Account Director Name Role Phone Ewa Camarena DO Unavailable [phone] Conrado Lozano MD Unavailable [phone] Ashley Varner MD Unavailable [phone] Conrado Lozano MD Unavailable [phone] Ewa Camarena DO Primary Care Provider Ashley Moran HEALTH/SAFETY JOB TITLES Unavailable [phone] Encounter Details Date Type Department Care Team (Latest Contact Info) Description 06/01/2025 Travel Social History Tobacco Use Types Packs/Day Years [...] [address] [place] [address] Ewa Camarena DO [address] [place] [address] 01/05/2026 9:00 AM EST Office Visit [facility] [address] [place] [address] Ashley aVrner MD [address] [place] [address] documented as of this encounter Visit Diagnoses Not on filedocumented in this encounter Care Teams Strategic Account Director Relationship Specialty Start Date End Date Ewa Camarena DO [address] [place] [address] PCP - ACO Reach 03/28/23 Ewa Camarena DO [address] [place] [address] PCP - General Internal Medicine 08/22/23 [place] [address] [place] [address] Referring Physician Ophthalmology 08/21/23 Ashley Varner MD [address] [place] [address] Consulting Physician Dermatology 08/21/23 Conrado Lozano MD [address] [place] [address] Consulting Physician Ophthalmology 08/21/23 Ashley Moran NP [address] [facility] [address] [place] [address] Nurse Practitioner Family Medicine 08/27/24 Nathaniel Landa Consulting Physician Ophthalmology 08/20/23 Ta [facility] 08/05/23 documented as of this encounter
--- OUTSIDE RECORDS SUMMARY | 2025-06-14 08:44 | XMS_ITS | Encounter Summary ---
Author Organization [facility] Address [address] [facility] [place] [address] Care Team Providers Care Sheet Metal Duct Installer Helper Name Role Phone Ewa Camarena DO Unavailable [phone] Conrado Lozano MD Unavailable [phone] Ashley Varner MD Unavailable [phone] Conrado Lozano MD Unavailable [phone] Ewa Camarena DO Primary Care Provider Latosha Kennedy ARMORED CAR GUARD Unavailable [phone] Ashley Moran NEWSPAPER VENDOR Unavailable [phone] Encounter Details Date Type Department Care Team (Late st Contact Info) Description 03/27/2024 Orders Only [facility] [address] [facility] [address] [place] [address] A, Unknown Practice [address] [place] [address] Social History Tobacco Use Types Packs/Day [...] Medicine [address] [place] [address] Ewa Camarena DO [address] [place] [address] 01/05/2026 9:00 AM EST Office Visit [facility] [address] [place] [address] Ashley Varner MD [address] [place] [address] documented as of this encounter Procedures Procedure Name Priority Date/Time Associated Diagnosis Comments CT CERVICAL SPINE W IV CONTRAST Routine 03/27/2024 11:16 AM EDT documented in this encounter Results * CT cervical spine w IV contrast (03/27/2024 11:16 AM EDT) Anatomical Region Laterality Modality Spine, C-spine Computed Tomogra phy us Unknown Practice A IMG CT PROCEDURES Final Resul t documented in this encounter Visit Diagnoses Not on filedocumented in this encounter Care Teams Sheet Metal Duct Installer Helper Relationship Specialty Start Date End Date Ewa Camarena DO [address] [place] [address] PCP - ACO Reach 03/28/23 Ewa Camarena DO [address] [place] [address] PCP - General Internal Medicine 08/22/23 Conrado Lozano MD [address] [place] [address] Referring Physician Ophthalmology 08/21/23 Ashley Varner MD [address] [place] [address] Consulting Physician Dermatology 08/21/23 Conrado Lozano MD [address] [place] [address] Consulting Physician Ophthalmology 08/21/23 Latosha Kennedy LSW [address] [place] [address] Sales Producer Family Medicine 06/01/24 06/03/24 Ashley Moran NP [address] [facility] [address] [place] [address] Nurse Practitioner Family Medicine 08/27/24 Nathaniel Landa Consulting Physician Ophthalmology 08/20/23 [facility] 08/05/23 documented as of this encounter
== END 2025-06-14 08:43 | disposition home or self-care (01) ==
LOC: US 08:42
PROVIDERS: PCP Internal Medicine
DX: R41.82 Altered mental status, unspecified (principal)
CPT/HCPCS: 93880

== ENCOUNTER 2025-10-22 09:28 | Outpatient (OUT) | payer MEDICARE, OTHER, SELFPAY ==
--- OUTSIDE RECORDS SUMMARY | 2025-10-18 06:45 | XMS_ITS | Continuity of Care Document ---
Author Organization [facility] Address [address] [place] [address] Phone Care Team Providers Care Straightening Machine Feeder Name Role Phone Ewa Camarena DO Primary Care Provider Wilber Sesay MD Attending Provider Care Teams Patient Care Team Team Status: Active Member Role/Relationship Status Catherine Camarena DO Primary Care Provider Active Visit Care Team Team Status: Inactive Member Role/Relationship Status Catherine Camarena DO Primary Care Provider Active Start: August 12, 2025 End: August 12omas Dillon Sesay ProviderActiveStart: August 12, 2025 End: August 12, 2025 Visit Care Team Team Status: Inactive Member Role/Relationship Status Catherine Camarena DO Primary Care Provider Active Start: October 04, 2025 End: October 04omas Dillon Sesay ProviderActiveStart: October 04, 2025 End: October 04, 2025 Visit Care Team Team Status: Inactive Member Role/Relationship Status Catherine Camarena DO Primary Care Provider Active Start: October 11, 2025 End: October 11omas Dillon Sesay ProviderActiveStart: October 11, 2025 End: October 11, 2025 Patient Care Team Team Status: Inactive Member Role/Relationship Status Catherine Camarena DO Primary Care Provider Active Start: October 18, 2025 End: October 18, 2025Thomas Dillon Sesay ProviderActiveStart: October 18, 2025 End: October 18, 2025 Chief Complaint and Reason for Visit Chief Complaint Admit Date RECHECK August 12, 2025 1: 30pm LEFT CERVICAL FACET RFA C3 C4 /VW Dece mb2024 1:45pm RIGHT CERVICAL FACET RFA C3 C4 /VW Dec ember 2024 11:59am F/U APURVA CERVICAL FACET RFA October 11:01am Reason for Visit Admit Date Cervical pain (neck) August 12, 2025 1 :30pm Chronic pain August 12, 2025 1: 30pm Spondylosis without myelopat hy or radiculopathy, cervical region August 12, 2025 1:30pm Cervical pain (neck) October 18, 2025 11:01am Chronic pain October 18, 2025 11:01am Spondylosis without myelopat hy or radiculopathy, cervical region October 18, 2025 11:01am Allergies, Adverse Reactions, Alerts Allergen Type Severity Reaction Last Updated Verified Status ciprofloxacin Allergy Unknown Rash August 12, 2025 12:31pm Yes Active Social History Smoking Status Status Start Date End Date Date of Observa tion Ex-smoker (finding) September 03, 2024 9:29am Observation Status Observation Response Date of Response Legal Sex Male (finding) Sex Assigned At BirthMaleJuly 1944 Problems Active Problems Problem Diagnosis/Recorded Date Onset Date Stat us Spondylosis without myelopat hy or radiculopathy, cervical region June 18, 2024 1:45pm Unknown Acti ve Chronic pain June 18, 2024 1:45pm Unknown Act mayo Cervical pain (neck) June 18, 2024 1:45pm Unknown Active Inactive/Resolved Problems Problem Diagnosis/Recorded Date Onset Date Stat us CRP elevated May 06, 2024 5:08am Unknown Resolv ed Migraine May 06, 2024 5:08am Unknown Resolv ed Elevated erythrocyte sedimentation rate May 06, 2024 5:08am Unknown Resolved Cephalalgia March 31, 2024 5:03pm Unknown Resolv ed Medications Medication Status Dose Units Route Directions Qty Days Refills S tart Date Stop Date End Date Reason(s) Instructions Adherence Cyclobenzaprine 10 mg tablet Discontinued 10 MG PO Three times daily as needed for muscle spasm 14 0May 2023 11:00pmAugust 2023 1:31pmPrednisone 50 mg tablet Ftkyylkchisv06ZJNLOwgiu268Nrr 2023 11:00pmJuly 2023 5:09amPrednisone 50 mg tcjcnmSwewuzxyayii03JFVEJexrg685Jgik 2023 11:00pmAugust 2023 1:31pmDiclofenac Sodium (Voltaren Arthritis Pain) 1 % hogBvojqm6GVNAHOGFTDtvf times daily as needed for tjka5927Fbldhkoy 2023 12:00amUnknownFluoxetine (Prozac) 10 mg rhsuzlyAygqnn60XACWNkmddBzvuvy 2023 11:00pmUnknown Tizanidine 4 mg qlorwyvZlttzc1GGTPPqpiz daily as needed for muscle tsvswnhcod47 300August 2023 11:00pmUnknownFolic Acid 1 mg kbwrqxSaudrq4RVKGCxfisJqvuin 2024 11:00pmUnknownCholecalciferol (Vitamin D3) 10 mcg (400 unit) capsule Urbzdd56YIOCSUsfxxUzqkju 2024 11:00pmUnknownCalcium Glycerophosphate 65 mg yduziyTnwntu48TSGZBucon times dailyAugust 2024 11:00pmUnknown Advance Directives Advance Directive Response Recorded Date/ Time Advance Directives No September 03, 2024 8:29am Insurance Providers Guarantor Gen Rees Address [address] [address]Sw[employer]ieu Info.Home Phone: Coverage Status Update:June 23, 2025 Payer Group Member ID Coverage Type Subscriber Relationship to Subscriber Effective Date Expiration Date Medicare [id number] A [place] Id: [id number] [address] [address] Home Phone: Email: [facility] Claims [id number] A [place] Id: [id number] [address] [address] Home Phone: Email: [facility] Encounter Location(s) Arrival/Admit Date Discharge/Departure Date Discharge/Departure Disposition Provider(s) Departed Physician/ Provider Office Visit -[facility] August 12, 2025 1:30pm August 12, 2025 2:19pm Discharged to home care or self care (routine discharge) Rogelio Howard MD Departed Physician/ Provider Office Visit -[facility] October 04, 2025 1:45pm October 04, 2025 2:00pm Discharged to home care or self care (routine discharge) Rogeilo Howard MD Departed Physician/ Provider Office Visit -[facility] October 11, 2025 11:59am October 11, 2025 11:59pm Discharged to home care or self care (routine discharge) Rogelio Howard MD Departed Physician/ Provider Office Visit -[facility] October 18, 2025 11:01am October 18, 2025 11:43am Discharged to home care or self care (routine discharge) Rogelio Howard MD Recent Diagnosis Onset Date Admit Date Cervical pain (neck) Unknown August 1:30pm Chronic pain Unknown August 12 1:30pm Spondylosis without myelopat hy or radiculopathy, cervical region Unknown August 12, 2025 1:30p m Cervical pain (neck) Unknown October 182024 11:01am Chronic pain Unknown October 18, 025 11:01am Spondylosis without myelopat hy or radiculopathy, cervical region Unknown October 18, 2025 11: 01am Assessments Diagnosis Onset Date Resolution Status Admit Date Cervical pain (neck) acuteOctober 2024 1:30pmChronic painacuteOctober 2024 1:30pm Spondylosis without myelopathy or radiculopathy, cervical regionacuteOctober 2024 1:30pmCervical pain (neck)acuteDecember 2024 11:01amChronic pain acuteDecemb2024 11:01amSpondylosis without myelopathy or radiculopathy, cervical regionacuteDecemb2024 11:01am Plan of Treatment Author Moody [facility]2024 11:39amPatient notes considerable improvement in their symptoms following recent bilateral cervical facet medial branch nerve radiofrequency ablations. We will continue to monitor and proceed with repeat treatment to the area as needed. He was advised of the importance of activity modification and limitations. We will follow up with the patient in six months, sooner if needed. Anatomy of spine discussed in detail with patient in regards to patients condition. Overall, patient believes their pain is reasonably well controlled and he is in agreement with our treatment plan. Above note written by Moody Rosas CMA, Dieing Out Machine Operator. Edited and approved by Dr. Wilber Sesay MD Author Wilber Sesya [facility] HospitalAuthoredOctober 2024 1:38pmWe discussed treatment options for the patient's persistent cervical pain. He has done very well with previous cervical facet RFA procedures. He returning pain consistent with degenerative changes of the cervical spine. We discussed the possible benefit of treatment of the facet region for axial cervical pain should his symptoms become more severe. Risks and benefits of the procedure were discussed in detail. Anatomy of spine discussed in detail with patient in regard to patients condition. Patient will call the office should he wish to proceed with a repeat procedure. Above note written by RONI Guerra, Dieing Out Machine Operator. Edited and approved by Dr. Wilber Sesay MD Future Tests Future scheduled test information is unavailable Pending Tests Pending diagnostic test information is unavailable Future Visits Future appointment information is unavailable Future Procedures Future procedure information is unavailable Future Medications Future medication information is unavailable Patient Instructions Patient instructions are unavailable
--- OUTSIDE RECORDS SUMMARY | 2025-10-22 09:36 | XMS_ITS | Clinical Summary ---
Author Organization [facility] Address [address] [place] [address] Care Team Providers Care Fish And Wildlife Biologist Name Role Phone Ewa Camarena MD Primary Care Provider [phone] Allergies Active AllergyReactionsCriticalityNoted DateCommentsCiprofloxacinRashLow 04/14/2025 Medications MedicationSigDispense QuantityRefillsLast FilledStart DateEnd DateStatus ammonium lactate (Lac-Hydrin) 12 % lotion Apply 1 Application topically if needed for dry skin or irritation (for feet and lower legs as needed).5Active FLUoxetine (PROzac) 20 mg capsule Indications:post traumatic stress disorderTake 40 mg by mouth in the morning. Active methocarbamol (Robaxin) 500 mg tablet Indications:Closed nondisplaced intertrochanteric fracture of left femur, initial encounter ([facility])Take 1 tablet (500 mg) by mouth if needed in the morning, at noon, and at bedtime for muscle spasms.5Active Additional Information Patient not taking.Reported on 08/11/2025 folic acid (Folvite) 1 mg tablet Take 1 mg by mouth.5Active cholecalciferol (Vitamin D-3) 50 MCG (1999) tablet Take 50 mcg by mouth.5Active Active Problems ProblemNoted DateDiagnosed DateClosed nondisplaced intertrochanteric fracture of left femur04/14/2025losed fracture of femur, intertrochanteric, left, initial tzlripnaa72/11/2025 Encounters DateTypeDepartmentCare WvppBkjidaxntxc99/08/2025 8:15 AM EDTFollow-Up [facility] [address] [place] [address] [place] [id number] Ady Anton MD Closed fracture of femur, intertrochanteric, left, initial encounter ([facility]) (Primary Dx)08/11/2025 7:43 AM EDT - 08/11/2025 11:59 PM EDTHospital Encounter [facility] [address] [place] [address] [place] [phone] Closed fracture of femur, intertrochanteric, left, initial encounter ([facility]) Discharge Disposition: Home or Self Care (01)from Last 3 Months Social History Tobacco UseTypesPacks/DayYears UsedDateSmoking Tobacco: NeverSmokeless Tobacco: Never Tobacco Cessation:Counseling Given: Not Answered Alcohol UseStandard Drinks/WeekCommentsNot Currently0 (1 standard drink = 0.6 oz pure alcohol)[facility] UtilitiesAnswerDate RecordedIn the past 12 months has the [place], oil, or water [employer] threatened to shut off services in your home?No06/09/2025Humiliation, Afraid, Rape, and Kick questionnaireAnswerDate RecordedWithin the last year, have you been afraid of your partner or ex-partner?No08/11/2025Emotionally AbusedNot on file08/11/2025Physically Abused Not on file08/11/2025Sexually AbusedNot on file08/11/2025Overall Financial Resource Strain (CARDIA)AnswerDate RecordedHow hard is it for you to pay for the very basics like food, housing, medical care, and heating?Not very hard 04/28/2025PHQ-2AnswerDate RecordedPatient Health Questionnaire-2 Score0 08/11/2025TransportationAnswerDate RecordedIn the past 12 months, has lack of transportation kept you from medical appointments or from getting medications?No 04/28/2025Lack of Transportation (Non-Medical)Not on file04/28/2025Housing Stability Vital SignAnswerDate RecordedIn the last 12 months, was there a time when you were not able to pay the mortgage or rent on time?No04/28/2025Number of Times Moved in the Last YearNot on file04/28/2025t any time in the past 12 months, were you homeless or living in a retirement (including now)?No04/28/2025 Hunger Vital SignAnswerDate RecordedWithin the past 12 months, you worried that your food would run out before you got the money to buymore.Never true04/28/2025 Ran Out of Food in the Last YearNot on file04/28/2025Sex and Gender Information ValueDate RecordedSex Assigned at OucpvGyht14/25/2025 8:58 AM EDTLegal SexMale 04/14/2025 8:05 PM EDTGender YkthiijtFuie92/25/2025 8:58 AM EDTSexual OrientationHeterosexual or Rwsedesh14/25/2025 8:58 AM EDT Last Filed Vital Signs Vital SignReadingTime TakenCommentsBlood Kpswxssx434/6806 6:56 AM EDT Ptkpa491304/18/2025 6:56 AM VZGRotshqdjpwj85.4 ??C (97.5 ??F)04/18/2025 6:56 AM EDTRespiratory Iivc957704/18/2025 6:56 AM EDTOxygen Bnkydzwzzc15%04/18/2025 6:56 AM EDTInhaled Oxygen Concentration--Fmunqu657 kg (248 lb)08/11/2025 8:08 AM EDT Vyusct497.3 cm (5' 9 )06/09/2025 8:00 AM EDTBody Mass Index36.6208 8:00 AM EDT Plan of Treatment Health MaintenanceDue DateLast DoneCommentsMedicare Annual Wellness (AWV) 6COVID-19 Vaccine ( season), 07/17/2024, 07/26/2023, Additional history existsInfluenza Vaccine (#1) /, 07/15/2023, 08/31/2022, Additional history exists Depression Yrjatokja00Fall Risk Xkwdpeewk06 Adult Ymvccob14/874366/3Pneumococcal Vaccine: 50+ YearsCompleted 05/03/2016, 06/11/2013, 02/16/2006Zoster OlbqvrzaIkycadgrn58/15/2019, 08/04/2019, 06/15/2019, Additional history existsHIB VaccinesAged OutNo longer eligible based on patient's age to complete this topicHPV VaccinesAged OutNo longer eligible based on patient's age to complete this topicIPV VaccinesAged OutNo longer eligible based on patient's age to complete this topicMeningococcal B VaccineAged OutNo longer eligible based on patient's age to complete this topicMeningococcal VaccineAged OutNo longer eligible based on patient's age to complete this topicRotavirus VaccinesAged OutNo longer eligible based on patient's age to complete this topic Medical Devices ImplantedTypeAreaManufacturerDevice IdentifierShelf Expiration DateModel / Serial / LotDeg Ti Myesha Tfna Implanted:Qty: 1 on 04/15/20[facility] [id number] / / [id number] Fenestrated Helical Blade Implanted:Qty: 1 on 04/15/2025 [facility]: [id number] / / [id number] Screw For Im Nail Implanted:Qty: 1 on 04/15/2025 by [facility]: [id number] / / [id number] Procedures Procedure NamePriorityDate/TimeAssociated DiagnosisCommentsXR HIP 2 OR 3 VW LEFT Whgsecs7908/11/2025 7:49 AM EDT Closed fracture of femur, intertrochanteric, left, initial encounter ([facility]) from Last 3 Months Results * XR hip left 2 or 3 views (08/11/2025 7:49 AM EDT)Anatomical RegionLaterality ModalityLower Extremities, HipLeftComputed RadiographySpecimen (Source) Anatomical Location / LateralityCollection Method / VolumeCollection Time Received Time08/11/2025 8:01 AM EDT Impressions 08/11/2025 11:52 AM EDT * No new acute osseous abnormalities. * Trochanteric hip fracture fixation hardware present without obvious complication. * Continued healing and bone callus formation at the fracture site. * Redemonstration of degenerative changes of the hips, SI joints, and lumbar spine. Approved by:Lucie Barton08/11/2025 8:11 AM. I, Carlin Paul MD,have reviewed the image(s) and agree with the findings in this report. Electronically signed: Carlin Paul MD. Narrative 08/11/2025 11:52 AM EDT XR HIP 2 OR 3 VW LEFT 08/11/2025 7:48 AM CLINICAL INDICATIONS: ??Intertrochanteric fracture of the femur status post reduction and nailing COMPARISON: Multiple prior hip and femur radiographs, most recent hip radiograph 06/09/2025 FINDINGS: 3 views obtained. Trochanteric hip fracture fixation hardware present without evidence of loosening. Continued new bone callus formation. Heterotopic osseous formation superior to the greater trochanter of left femur. Alignment is maintained No new fractures. Joint space is narrowed. Degenerative changes of the bilateral hips. No significant osseous demineralization. Procedure Note Carlin Paul MD - 08/11/2025 XR HIP 2 OR 3 VW LEFT 08/11/2025 7:48 AM CLINICAL INDICATIONS: Intertrochanteric fracture of the femur statuspost reduction and nailing COMPARISON: Multiple prior hip and femur radiographs, most recent hipradiograph 06/09/2025 FINDINGS: 3 views obtained. Trochanteric hip fracture fixation hardware present without evidence of loosening. Continued new bone callus formation. Heterotopic osseousformation superior to the greater trochanter of left femur. Alignment ismaintained No new fractures. Joint space is narrowed. Degenerative changes of thebilateral hips. No significant osseous demineralization. IMPRESSION: *No new acute osseous abnormalities. *Trochanteric hip fracture fixation hardware present without obvious complication. *Continued healing and bone callus formation at the fracture site. *Redemonstration of degenerative changes of the hips, SI joints, andlumbar spine. Approved by:Lucie Barton08/11/2025 8:11 AM. I, Carlin Paul MD,have reviewed the image(s) and agree with thefindings in this report. Electronically signed: Carlin Paul MD. Authorizing ProviderResult TypeResult StatusChristopher Desean LAGUNASIMG XR PROCEDURESFinal Result from Last 3 Months Insurance Advance Directives * Full Code (Latest Code Status on File) Date ActivatedDate InactivatedComments04/14/2025 11:37 PM04/18/2025 1:51 PM Care Teams Team MemberRelationshipSpecialtyStart DateEnd Date Ifrah-Ewa Shah MD [address] [place] [address] PCP - GeneralInternal Medicine04/14/25
--- OUTSIDE RECORDS SUMMARY | 2025-10-22 09:36 | XMS_ITS | Clinical Summary ---
Author Organization [facility] Address [address] [place] [address] Care Team Providers Care Process Worker Name Role Phone Ewa Camarena DO Unavailable [phone] Conrado Lozano MD Unavailable [phone] Ashley Varner MD Unavailable [phone] Conrado Lozano MD Unavailable [phone] Ewa Camarena DO Primary Care Provider Ashley Moran NP Unavailable [phone] Allergies Active AllergyReactionsCriticalityNoted DateCommentsCiprofloxacinRashLow 05/13/20232980Mqhpvsq78/10/2023 Other Reaction(s): intolerant Medications MedicationSigDispense QuantityRefillsLast FilledStart DateEnd DateStatus FLUoxetine (PROzac) 20 MG capsule Indications:Posttraumatic Stress DisorderTake 40 mg by mouth DailyActive ammonium lactate (Lac-Hydrin) 12 % lotion Indications:Venous stasis dermatitis of right lower extremityApply topically if needed for dry skin 140 g [id number] acetaminophen (Tylenol) 500 MG tablet Take 1,000 mg by mouth in the morning and 1,000 mg before bedtime.Active aspirin 325 MG tablet Take 325 mg by mouth DailyActive Cholecalciferol 50 MCG (1999) tablet dispersible Take 50 mcg by mouth DailyActive folic acid (Folvite) 1 MG tablet Take 1 mg by mouth5Active Active Problems ProblemNoted DateDiagnosed DateCognitive cxvmggm9705/23/2025 Assessment & Plan (06/19/2025 6:40 PM EDT): Discussed sx with him and his . Advised that inadequately treated depression can cause a pseudo-dementia... this is something he can discussed with his Mental Health provider at the [place]. Discussed getting Neuropsych testing to better help with assessing for cause of his symptoms. [facility] If not, he will let me know and I will send a referral to Dr Huizar here in [place]. We also discussed doing evaluation for reversible causes of cognitive changes. I would recommend getting carotid U/S due to his increased risk for CVD/PAD. Again, he will see if this can be ordered through [facility]. -Discussed potential to get a driving assessment, but he is willing to allow his to do the driving, so will not pursue OT referral at this time. S/p left hip /12/2025 Overview (06/19/2025): He was assisting his into the car when he missed a step off a curb and fell backwards landing on his left side. He denied hitting his head or experiencing loss of consciousness with the fall. Hereports feeling a a sharp pain in his left leg after the fall. Imaging revealed a intertrochantericfracture of his left proximal femur with varus angulation and approximately 10% displacement. Orthopedic surgery was consulted on 04/14/2025 and the patient was taken to the OR on 04/15/2025 for a closed reduction with cephalomedullary nail placement Assessment & Plan (06/19/2025 6:44 PM EDT): He reports he is doing pretty well and participating with PT as recommended Arthritis of neck04/01/2024 Overview (08/27/2024): CT done 03/2024 for BLANCO. Noted to have degenerative changes at the spine with disc space narrowing, endplate spurring and facet disease. There is mild thecal sac effacement at C3-4 and C6-7 and moderate at C4-5 and C5-6. There is also prominent multilevel foraminal encroachment from C3-4 through C5-6bilaterally -- 08/2024: He has had 2 injections with Pain Management/Dr Sesay and reports significant improvement CPAP (continuous positive airway pressure) umnqjxdhsl98/01/2023 Overview (06/19/2025): Utilizing CPAP at 8-82zlI4X- post WatchPAT device PTSD (post-traumatic stress disorder)08/22/2023 Overview (06/19/2025): -2022- seeing a counselor and participating in a support group through the [place] -08/2024: He reports he feels like his dose of fluoxetine needs increase from 20 mg to 40 mg ([facility] will [facility]) -05/2025: He is concerned the fluoxetine is affecting his memory. I advised him that an inadequatelytreated mood disorder could be cause of his cognitive changes. He will discuss with [place] [facility] provider at upcoming appt EPIFANIO (obstructive sleep apnea)08/22/2023 Overview (11/12/2023): 08/22/2023: He had a sleep study done ~07/2023 (through the [place]) and findings c/w moderate EPIFANIO> will likely be getting a CPAP. He reports that he has appt an 09/05/2023 to discuss recommendations 11/2023 Pt prescribed CPAP of 8-12 cmH2O post WatchPAT device and Dr. Marrero (thru the [place]). He reports he is tolerating this well and is wearing nightly and during the day if he naps. He reports he is getting up less frequently at night and much more rested during the day Bilateral zppukrqe95/18/2023Sensorineural hearing loss (SNHL), bilateral 08/21/2023 Assessment & Plan (08/22/2023 9:41 AM EDT): He can get his [facility] aids through the [facility] Venous stasis dermatitis of right lower amzxjphfj35/18/2023IFG (impaired fasting glucose)11/04/2018 Overview (08/27/2024): Dx 11/2018. He made diet changes and lost ~35# and glucose control improved 08/2023 UIE=538 and A1c-5.5% 08/2024 CML=253 and A1c=6.0% Assessment & Plan (08/27/2024 9:41 AM EDT): I have reinforced the importance of dietary modification, routine exercise and weight control for snf glucose management and reduction in risk for development of DM or DM-related complications (like vision loss, kidney failure, neuropathy, and increased risk of heart attack and stroke). Assessment & Plan (08/22/2023 9:41 AM EDT): His glucose control remains good overall. Hx of deep venous zbauamaerd88/01/2006 Overview (08/21/2023): 06/2006: Occurred in post-op setting. 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 and then treated with Xarelto x 3 months (initially was on coumadin, but he was sensitive to this and had supratherapeutic INR even on low dose) Michael filter in place11/04/2005 Overview (08/21/2023): placed 06/2006: right leg Encounters DateTypeDepartmentCare GtpcXfurnnxdrwh77/16/2025Telephone [facility] [place] [facility] [address] [place] [address] Ewa Camarena, DO Due for repeat CT (assess adrenal nodule)07/26/2025Results Follow-Up [facility] [place] [facility] [address] [place] [address] Ashley Varner MD Dermatopathology examfrom Last 3 Months Immunizations ImmunizationAdministration DatesNext DueInfluenza, seasonal, injectable 3Pneumococcal Conjugate PCV 13005/03/2016Pneumococcal Polysaccharide DYXE6423,02/16/2006RSV, recombinant, protein subunit RSVpreF, adjuvant reconstitu, 120mcg/0.5mL, PF (Arexvy)07/15/20238028FTED-GYN-7 (COVID-19) vaccine, mRNA, spike protein, LNP, PF, karen-sucrose, 30 mcg/0.3 mL07/26/2023Tdap 04/26/2023Zoster, Ewmlkrstgaj26/15/2019,08/04/2019,06/15/2019 Family History Medical HistoryRelationNameCommentsAppendicitisBrother 1CAD with 4VCABGBrother 1 Colon cancerBrother 1Kidney cancerBrother 1Alcohol abuseBrother 2Drug abuse Brother 2smoking related health issuesBrother 2CAD with MIFatherStrokeFather Chronic kidney diseaseMotherDiabetesMotherCancerSiblingHeart diseaseSibling OsteoporosisSister 1OsteoporosisSister 2MelanomaNeg HxRelationNameStatusComments Brother 1Brother 2AliveFatherDeceased (Age 71)MotherDeceased (Age 91)Sibling Sister 1Sister 2Alive Social History Tobacco UseTypesPacks/DayYears UsedDateSmoking Tobacco: FormerCigarettesQuit: 11/04/1993Smokeless Tobacco: Never Tobacco Cessation:Counseling Given: No Alcohol UseStandard Drinks/WeekCommentsNot Currently0 (1 standard drink = 0.6 oz pure alcohol)pt does not drink; caffeine intake: 1 can of pepsi once a week AUDIT-CAnswerDate RecordedFrequency of Alcohol ConsumptionNot on file08/21/2023 Q2: How many drinks containing alcohol do you have on a typical day when you are drinking?Patient does not drink08/21/2023Frequency of Binge DrinkingNot on file 08/21/2023HQ-2AnswerDate RecordedPatient Health Questionnaire-2 Score0 08/27/2024Sex and Gender InformationValueDate RecordedSex Assigned at BirthMale 05/11/2023 5:37 PM EDTLegal JjnJzyh14/ 7:16 PM EDTGender IdentityMale 05/11/2023 5:37 PM EDTSexual YulsqdogffjQzkykwwi92/08/2023 5:37 PM EDT Last Filed Vital Signs Vital SignReadingTime TakenCommentsBlood Bkypzwux246/68006/01/2025 10:45 AM EDT Nqmzg198606/01/2025 10:45 AM GIERtqvrykxuzr36.1 ??C (97 ??F)02/09/2025 9:58 AM EDT Respiratory Rate--Oxygen Qbcoiyrszu41%06/01/2025 10:45 AM EDTInhaled Oxygen Concentration--Aejqwc789 kg (226 lb 12.8 oz)06/01/2025 10:45 AM RAWByonpa352.3 cm (5' 9 )01/02/2023 12:00 PM ESTBody Mass Index33.49001/02/2023 12:00 PM EST Plan of Treatment DateTypeDepartmentCare Team (Latest Contact Info)Qhnnvgchise93/07/2026 8:30 AM ESTOffice Visit [facility] [address] [place] [address] Mayda Norman MD [address] [place] [address] 11/16/2025 10:00 AM ESTOffice Visit [facility] [address] [place] [phone] Ewa Camarena DO [address] [place] [address] 01/05/2026 9:00 AM ESTOffice Visit [facility] [address] [place] [address] Ashley Varner MD [address] [place] [address] Health MaintenanceDue DateLast DoneCommentsMedicare Annual Wellness (AWV) /OVID-19 Vaccine ( season)504/, 07/17/2024, 07/26/2023, Additional history existsInfluenza Vaccine (#1) 509/, 07/15/2023, 08/31/2022, Additional history exists Pneumococcal Vaccine: 65+ XdibwAqzfpfowu35/30/2016, 06/11/2013, 02/16/2006 Insurance Advance Directives TypeDate RecordedPatient RepresentativeExplanationAdvance Directives and Living Will09/15/20192019.10.16.DNR * Full Code (Latest Code Status on File) Date ActivatedDate FdprsgptdqrZydsjewg09/24/2024 9:14 AM * Full Code Date ActivatedDate UqlqkocgftbHnwytjlq46/18/2023 11:18 08/27/2024 9:14 AM Care Teams Team MemberRelationshipSpecialtyStart DateEnd Date Ewa Camarena DO [address] [place] [address] PCP - ACO Reach03/28/23 Ewa Camarena DO [address] [facility] [address] [place] [address] PCP - GeneralInternal Wrghrsqw75/19/23 Conrado Lozano MD [address] [place] [address] Referring DkxwpihwyFskkqsvonliam99/18/23 Ashley Varner MD [address] [facility] [address] [place] [address] Consulting SkxkjuocxLkigutpefng25/18/23 Conrado Lozano MD [address] [place] [address] Consulting BommqqsfaTadzvhxsthhvx41/18/23 Ashley Moran NP [address] [facility] [address] [place] [address] Nurse PractitionerFamily Avkgtcgx41/24/24 Nathaniel Landa Consulting DmloycyejQtbjyanlyjief33/17/23 [facility] Wiryyqns86/2/23
--- OUTSIDE RECORDS SUMMARY | 2025-10-22 09:36 | XMS_ITS | Encounter Summary ---
Author Organization [facility] Address [address] [place] [address] Care Team Providers Care Live Games Dealer Name Role Phone Ewa Camarena DO Unavailable [phone] Conrado Lozano MD Unavailable [phone] Ashley Varner MD Unavailable [phone] Conrado Lozano MD Unavailable [phone] Ewa Camarena DO Primary Care Provider Ashley Moran DANCE MASTER Unavailable [phone] Reason for Referral * Imaging (Routine) - AuthorizedSpecialtyDiagnoses / ProceduresReferred By ContactReferred To [facility] Diagnoses Adrenal nodule (HCC) Procedures CT abdomen wo IV contrast Ewa Camarena DO [address] [facility] [address] [place] [address] Phone: tel: fax: [facility] [place] [address] fax: Referral IDStatusReasonStart DateExpiration DateVisits RequestedVisits [id number]/16/20256/ Reason for Visit * ReasonOnset DateCommentsDue for repeat CT (assess adrenal nodule)10/19/2025 Encounter Details DateTypeDepartmentCare Team (Latest Contact Info)Jmuxvsezhgp06/16/2025Telephone [facility] [place] [facility] [address] [place] [address] Ewa Camarena DO [address] [place] [address] (assess adrenal nodule) Social History Tobacco UseTypesPacks/DayYears UsedDateSmoking Tobacco: FormerCigarettesQuit: 11/04/1993Smokeless Tobacco: NeverAlcohol UseStandard Drinks/WeekCommentsNot Currently0 (1 standard drink = 0.6 oz pure alcohol)pt does not drink; caffeine intake: 1 can of pepsi once a weekAUDIT-CAnswerDate RecordedFrequency of Alcohol ConsumptionNot on file08/21/2023Q2: How many drinks containing alcohol do you have on a typical day when you are drinking?Patient does not drink08/21/2023 Frequency of Binge DrinkingNot on file08/21/2023HQ-2AnswerDate RecordedPatient Health Questionnaire-2 Fcxvb067Sex and Gender InformationValueDate RecordedSex Assigned at CzixtQxsb51/08/2023 5:37 PM EDTLegal XojIkxj3201/16/2023 7:16 PM EDTGender GlbodcueDysq65/08/2023 5:37 PM EDTSexual OrientationStraight 05/11/2023 5:37 PM EDTdocumented as of this encounter Miscellaneous Notes * Telephone Encounter - Lakisha Remy LPN - 10/19/2025 2:51 PM EST Talked to patient, he would like the CT done at [place] , sent order * Telephone Encounter - Ewa Camarena DO - 10/19/2025 8:49 AM EST Please see where he wants to do the repeat CT (to reassess the left adrenal nodule) and then transmit. Thank you * Telephone Encounter - Ewa Camarena DO - 10/19/2025 8:46 AM EST ----- Message from Dr. Ewa Camarena sent at 06/01/2025 11:27 AM EDT ----- Regarding: repeat CT Need repeat CT to assess the left adrenal nodule seen in April documented in this encounter Plan of Treatment DateTypeDepartmentCare Team (Latest Contact Info)Tqsfuvelhwu85/07/2026 8:30 AM ESTOffice Visit [facility] [address] [place] [phone] Mayda Norman MD [address] [place], [place] [address] 11/16/2025 10:00 AM ESTOffice Visit [facility] [place] [facility] [address] [place] [address] Ewa Camarena DO [address] [place] [address] 01/05/2026 9:00 AM ESTOffice Visit [facility] [place] [facility] [address] [place] [phone] Ashley Varner MD [address] [place] [address] NameTypePriorityAssociated DiagnosesOrder ScheduleCT abdomen wo IV contrast ImagingRoutine Adrenal nodule (HCC) Expected: 10/19/2025 (Approximate), Expires: 01/17/2026documented as of this encounter Visit Diagnoses Diagnosis Adrenal nodule (HCC)- Primary Benign neoplasm of adrenal gland documented in this encounter Care Teams Team MemberRelationshipSpecialtyStart DateEnd Date Ewa Camarena DO [address] [place] [address] PCP - ACO Reach03/28/23 Ewa Camarena DO [address] [place] [address] PCP - GeneralInternal Xojykutn57/19/23 Conrado Lozano MD [address] [place] [address] Referring IjjaidyczIrgzqdsdyvrel54/18/23 Ashley Varner MD [address] [place] [address] Consulting GhebjrkgmPidwwdopjfh46/18/23 Conrado Lozano MD [address] [place] [address] Consulting LczluchqpKjyyokuvtblzw81/18/23 Ashley Moran NP [address] [place] [address] Nurse PractitionerFamily Gpjfrhfa43/24/24 Nathaniel Landa Consulting CinaqxfgnMnhaujnqzwhgx32/17/23 [facility] Bnbvpeef10/2/23documented as of this encounter
--- NOTE | 2025-10-22 09:41 | CT_ITS ---
The [address] [address] Patient Name: DEBORA REYNOLDS MRN: [id number] date: 1945 Sex: M Assigned Patient Location: CT Current Patient Location: CT Accession/Order Number: [id number] Exam Date: 10/22/2025 09:46 Report Date: 10/22/2025 10:24 At the request of: FRAN LYONS Procedure: CT abdomen wo con CT ABDOMEN WITHOUT CONTRAST CLINICAL DATA: Adrenal nodule COMPARISON: None Spiral images were obtained through the abdomen without contrast. This CT exam was performed using one or more following dose reduction techniques: Automated exposure control, adjustment of the mA and/or kV according to patient size, or use of iterative reconstruction technique. Limited cuts through the lung bases show calcified granulomas. Assessment of the intra-abdominal organs is slightly limited by the absence of contrast. No calcified gallstones are identified. Calcified hepatic and splenic granulomas are seen. No pancreatic abnormalities are visualized. There are 11 mm right and 18 mm left hypodense adrenal nodules. Adenomas are suspected. No renal calculi or hydronephrosis are seen. A 16 mm hypodensity is present at the inferior pole on the right that may be a cyst. An IVC filter is visualized. There is atherosclerotic plaque at the aorta and proximal imaged iliac arteries. There are small benign-appearing lymph nodes. No ascites is seen. The small bowel loops are normal caliber. Stool is present along the colon. There are left-sided colonic diverticula. Clips are present adjacent to the descending colon. Multilevel degenerative changes are seen at the spine. CT/CT abdomen wo con IMPRESSION: HYPODENSE ADRENAL NODULES, LEFT LARGER THAN RIGHT WHICH MAY BE ADENOMAS. POSSIBLE RIGHT RENAL CYST. DIVERTICULOSIS. NO ACUTE FINDINGS. Impression dictated by: Trinidad Hui M.D. 10/22/2025 10:24 AM Dictation Location: [employer] Electronically authenticated by: [id number] Y Date: 10/22/2025 10:24
== END 2025-10-22 09:29 | disposition home or self-care (01) ==
PROVIDERS: PCP Internal Medicine; Visit Provider Internal Medicine
DX: E27.9 Disorder of adrenal gland, unspecified (principal); K57.90 Diverticulosis of intestine, part unspecified, without perforation or abscess without bleeding
CPT/HCPCS: 74150